=== PATIENT | male | born 1975 | race Caucasian/White ===

== ENCOUNTER → 2017-08-17 | Outpatient (CLI) | payer OTHER ==
[~2017-08-17] VITALS: Ht 177.8 cm; Wt 90.7 kg
[~2017-08-17] MED LIST: ABILIFY10 MG PO; BUSPAR10 MG PO; DEPAKOTE500 MG PO; DESYREL100 MG PO; LIPITOR40 MG PO; LITHIUM CARBON300 M1 PO; PERPHENAZINE2 MG PO; SEROQUEL50 MG PO; SIMVASTATIN20 M1 PO; SIMVASTATIN40 MG PO; TRAMADOL HCL50 MG PO; VENLAFAXINE H37.5 MG PO; ZOLOFT100 MG PO; [UNRECOGNIZED DRUG - REMARK]
== END | disposition home or self-care (01) ==
LOC: AMB 08:47
PROC: 0TF3XZZ Fragmentation in Right Kidney Pelvis, External Approach (ICD-10-PCS; principal; 2017-08-17)
DX: N20.0 Calculus of kidney (principal); Z87.442 Personal history of urinary calculi; F43.10 Post-traumatic stress disorder, unspecified; Z82.49 Family history of ischemic heart disease and other diseases of the circulatory system; F17.200 Nicotine dependence, unspecified, uncomplicated
CPT/HCPCS: 74021; J1100; J1170; J1885; J2250; J2405; J3010